=== PATIENT | female | born 1990 | race American Indian/Alaskan Native ===

== ENCOUNTER → 2018-07-19 02:24 | Emergency (ER) | payer SELFPAY ==
[2018-07-19 03:49] VITALS: BP 134/79
== END | disposition left against medical advice (07) ==
LOC: ED 02:24
DX: M25.571 Pain in right ankle and joints of right foot (principal); Z53.21 Procedure and treatment not carried out due to patient leaving prior to being seen by health care provider

== ENCOUNTER 2019-04-03 15:29 | Outpatient (CLI) | payer OTHER ==
[2019-04-03 16:20] VITALS: BP 109/53
[2019-04-03] MEDS ORDERED: TYLENOL PO ONE (16:49)
[2019-04-03] MEDS ORDERED: TYLENOL ONE (16:52)
--- NOTE | 2019-04-03 17:03 | Event Note ---
Date: 04/03/19 Patient presents for c/o toothache and side abdominal/back pain. Patient denies any contractions, no tightening of abdomen. Patient denies VB, LOF. +FM. SVE closed/thick/OOP. No signs of ROM, no blood on exam glove noted. FHTs appropriate for GA. No contractions noted on TOCO. No contractions palpated, abdomen is soft, nontender all over. Patient reports she received care with Dr. Bailey. Tylenol PO given for toothache. Urged to f/u with her assigned OB provider. Patient agrees with plan to discharge and states she feels well enough to go home now.
== END 2019-04-03 17:05 | disposition home or self-care (01) ==
LOC: TRG 15:29
PROVIDERS: ATTEND Obstetrics & Gynecology
DX: O47.02 False labor before 37 completed weeks of gestation, second trimester (principal); Z3A.26 26 weeks gestation of pregnancy
CPT/HCPCS: 59025